=== PATIENT | male | born 1940 | race Two or more races ===

== ENCOUNTER 2019-05-11 05:50 | Day surgery (SDC) | payer OTHER ==
[~2019-05-11 05:50] MED LIST: ARICEPT10 MG PO; BICALUTAMIDE50 MG PO; CLONAZEPAM2 M1 PO; CO Q-1010 MG PO; FOLGARD TABLET1 EACH PO; FOLIC ACID1 MG PO; GINKGO PO; HYDROCHLOROTH12.5 M1 PO; LASIX20 MG PO; MAGNESIUM500 MG PO; REMERON15 M1 PO; [UNRECOGNIZED DRUG - OTHER] PO
== END 2019-05-11 14:15 | disposition home or self-care (01) ==
LOC: CIR.AMB 05:50
DX: K40.90 Unilateral inguinal hernia, without obstruction or gangrene, not specified as recurrent (principal)

== ENCOUNTER 2019-07-08 11:08 | Outpatient (CLI) | payer OTHER | END 2019-07-08 11:18 | disposition home or self-care (01) | LOC: RAD 11:08 | DX: M12.861 Other specific arthropathies, not elsewhere classified, right knee (principal); M12.862 Other specific arthropathies, not elsewhere classified, left knee ==

== ENCOUNTER 2021-10-19 07:40 | Outpatient (CLI) | payer OTHER | END 2021-10-19 07:48 | disposition home or self-care (01) | LOC: TOM 07:40 | PROVIDERS: ATTEND Radiology Radiation Oncology | DX: C61 Malignant neoplasm of prostate (principal) ==